=== PATIENT | female | born 1990 | race Caucasian/White ===

== ENCOUNTER → 2020-09-13 | Outpatient (CLI) | payer OTHER | LOC: SJCVCIMAG 09-04 10:18 | PROVIDERS: ATTEND Nuclear Medicine Nuclear Cardiology | DX: I87.2 Venous insufficiency (chronic) (peripheral) (principal) ==

== ENCOUNTER → 2020-09-26 | Outpatient (CLI) | payer OTHER ==
[~2020-09-26] VITALS: Ht 170.2 cm; Wt 119.3 kg
[~2020-09-26] MED LIST: PHENTERMINE HCL15 MG PO; SYNTHROID50 MCG PO
[2020-09-26 12:40] VITALS: BP 113/62
[2020-09-26 13:06] LABS: HEMATOCRIT 38.7 % (37.0-47.0); HEMOGLOBIN 12.1 gm/dL (12.0-15.0); MCH 23.2 pg (26.0-34.0); MCHC 31.2 g/dL (28.0-37.0); MCV 74.6 fL (80.0-100.0); RBC 5.19 mil/uL (4.20-5.00); RDW 14.1 % (10.5-14.5); WBC 5.7 thou/uL (4.0-11.0)
[2020-09-26 13:14] LABS: CALCIUM 9.6 mg/dL (8.5-10.1); CREATININE 0.8 mg/dL (0.6-1.0)
[2020-09-26 13:15] LABS: POTASSIUM 4.6 mmol/L (3.5-5.1)
== END | disposition home or self-care (01) ==
LOC: CATH 08:32
PROVIDERS: ATTEND Nuclear Medicine Nuclear Cardiology
DX: I87.1 Compression of vein (principal); I87.323 Chronic venous hypertension (idiopathic) with inflammation of bilateral lower extremity; R22.43 Localized swelling, mass and lump, lower limb, bilateral; R06.00 Dyspnea, unspecified; E66.09 Other obesity due to excess calories; Z98.890 Other specified postprocedural states; Z79.899 Other long term (current) drug therapy; Z88.8 Allergy status to other drugs, medicaments and biological substances

== ENCOUNTER → 2020-10-17 | Outpatient (CLI) | payer BC, OTHER | LOC: SJCVCIMAG | PROVIDERS: ATTEND Internal Medicine Cardiovascular Disease | DX: R06.09 Other forms of dyspnea (principal); I87.2 Venous insufficiency (chronic) (peripheral); I87.1 Compression of vein; M79.89 Other specified soft tissue disorders; I36.1 Nonrheumatic tricuspid (valve) insufficiency; E66.9 Obesity, unspecified ==

== ENCOUNTER → 2020-10-24 | Outpatient (CLI) | payer BC, OTHER | LOC: HYPER 13:37 | PROVIDERS: ATTEND Emergency Medicine | DX: R60.0 Localized edema (principal); R06.00 Dyspnea, unspecified; E07.89 Other specified disorders of thyroid; E66.9 Obesity, unspecified; I87.2 Venous insufficiency (chronic) (peripheral); Z68.41 Body mass index [BMI] 40.0-44.9, adult ==